=== PATIENT | male | born 1945 | race Caucasian/White ===

== ENCOUNTER 2020-10-11 13:19 | Emergency (ER) | payer OTHER, MEDICARE ==
[2020-10-11 14:23] LABS: ANION GAP 10.3 mEq/L (7-13); CHLORIDE,CL 106 mmol/L (98-107); SODIUM,NA 141 mmol/L (136-145)
--- NOTE | 2020-10-11 14:23 | EDM.PDOC ---
ED HPI GENERAL MEDICAL PROBLEM - General Source of Information: Reports: Patient, Family ( is with the patient ) History Limitations: Reports: Altered Mental Status - History of Present Illness Onset: Today, Other Duration: Constant Location: Reports: Other (bladder ) Quality: Reports: Other (none ) Improves with: Reports: None Worsens with: Reports: None Associated Symptoms: Reports: cough w sputum Left Upper Leg Pain Score (Numeric/FACES): 5 <Amber Ritchie - Last Filed: 10/11/20 16:29> <Bridgette Mccoy - Last Filed: 10/12/20 10:48> - General Chief Complaint: Neurological Problem Stated Complaint: altered mental status Time Seen by Provider: 10/11/20 14:21 - History of Present Illness INITIAL COMMENTS - FREE TEXT/NARRATIVE: Patient is a 75 y.o. male with a history of Parkinson's disease, accompanied by his , and brought to the ED by EMS for c/o altered mental status and worsening cough with production. The patient's reports the patient has been more agitated today than he has been recently, which prompter her to call EMS. She also states he has been more confused at nighttime and takes medications for hallucinations. EMS reports the patient urinated three times en route to the ED and he also urinated upon arrival. The patient's states he urinates frequently, so this is not unusual for him. He has a history of UTIs. The patient's also states the patient has a chronic cough, but reports it has been progressively worsening over the past week with increased production of clear sputum. Patient's reports he has a prescription for Guaifenesin , however, he has not been taking it regularly due to severe dysphagia. He has a swallow study scheduled for October 2020. Patient has been eating, but refusing to take fluids do to disliking the added thickener. Patient has had no fever, chills, body aches, ear pain, rhinorrhea, abdominal pain, or flank pain. Home health comes into the home every Sunday but due to the patient's change in mood and increased cough, they did not come to his home today. (Amber Ritchie) - Related Data Allergies Allergy/AdvReac Type Severity Reaction Status Date / Time clindamycin Allergy Diarrhea Verified 05/14/18 21:14 latex Allergy Rash Verified 10/11/20 13:47 tetracycline Allergy Cannot Verified 05/14/18 21:13 Remember Home Meds: Home Meds Cholecalciferol (Vitamin D3) [Vitamin D3] 2,000 units PO DAILY 05/14/18 [H istory] Cyanocobalamin (Vitamin B-12) [B-12] 1 cap PO DAILY 05/14/18 [History] Finasteride 5 mg PO DAILY 05/14/18 [History] Venlafaxine HCl [Venlafaxine ER] 75 mg PO QAM 05/14/18 [History] Carbidopa/Levodopa [Rytary ER 48.75 mg-195 mg Cap] 3 cap PO 1700 10/11/20 [History] Carbidopa/Levodopa [Rytary ER 48.75 mg-195 mg Cap] 4 cap PO .08,,10/11/20 [History] Clopidogrel Bisulfate [Clopidogrel] 75 mg PO DAILY 10/11/20 [History] Donepezil HCl 10 mg PO BEDTIME 10/11/20 [History] Lactobacillus Acidophilus [Acidophilus] 1 tab PO DAILY 10/11/20 [History] Losartan [Cozaar] 25 mg PO DAILY 10/11/20 [History] Mirtazapine 30 mg PO BEDTIME 10/11/20 [History] Propranolol HCl [Propranolol] 60 mg PO DAILY 10/11/20 [History] QUEtiapine Fumarate [Quetiapine Fumarate] 25 mg PO 1600 10/11/20 [History] QUEtiapine Fumarate [Quetiapine Fumarate] 75 mg PO BEDTIME 10/11/20 [History] Rosuvastatin Calcium 20 mg PO BEDTIME 10/11/20 [History] guaiFENesin [Guaifenesin] 400 mg PO TID PRN 10/11/20 [History] Past Medical History Cardiovascular History: Reports: High Cholesterol, Hypertension Respiratory History: Reports: Asthma Neurological History: Reports: Parkinson's - Infectious Disease History Infectious Disease History: Reports: Chicken Pox - Past Surgical History HEENT Surgical History: Reports: Tonsillectomy GI Surgical History: Reports: Colonoscopy <Amber Ritchie - Last Filed: 10/11/20 16:29> Social & Family History - Caffeine Use Caffeine Use: Reports: None <Amber Ritchie - Last Filed: 10/11/20 16:29> ED ROS GENERAL - Review of Systems Review Of Systems: Comprehensive ROS is negative, except as noted in HPI. <Amber Ritchie - Last Filed: 10/11/20 16:29> - Physical Exam Exam: See Below Exam Limited By: No Limitations (difficulty speaking but alert and oriented x4; is his historian) General Appearance: Alert, WD/WN, No Apparent Distress Eye Exam: Bilateral Eye: EOMI, Normal Inspection, PERRL Ears: Normal External Exam, Normal Canal, Normal TMs, Other (Patient wears hearing aids ) Nose: Normal Inspection, Normal Mucosa, No Blood Throat/Mouth: Normal Inspection, Normal Lips, Normal Teeth, Normal Gums, Normal Oropharynx, Normal Voice, No Airway Compromise Head Exam: Atraumatic, Normocephalic Neck: Normal Inspection, Supple, Non-Tender, Full Range of Motion Respiratory/Chest: No Respiratory Distress, Normal Breath Sounds, No Accessory Muscle Use, Chest Non-Tender, Rhonchi (Patient has wet sounding rhonchi which are cleared with coughing) Cardiovascular: Normal Peripheral Pulses, Regular Rate, Rhythm, No Edema, No Gallop, No JVD, No Murmur, No Rub GI/Abdominal: Normal Bowel Sounds, Soft, Non-Tender, No Organomegaly, No Distention, No Abnormal Bruit, No Mass. No: Guarding (Male) Exam: Deferred Rectal (Males) Exam: Deferred Neuro Exam (Abbreviated): Alert, Oriented, CN II-XII Intact, Normal Cognition, Normal Gait, Other (Patient has chronic tremors; decreased cordination due to Parkinsons ) Back Exam: Normal Inspection. No: CVA Tenderness (L), CVA Tenderness (R) Extremities: Normal Inspection, Non-Tender, No Pedal Edema, Normal Capillary Refill, Limited Range of Motion (due to stiffness ) Psychiatric: Normal Affect, Normal Mood Skin Exam: Warm, Dry, Intact, Normal Color, No Rash <Amber Ritchie - Last Filed: 10/11/20 16:29> Course <Bridgette Mccoy - Last Filed: 10/12/20 10:48> - Vital Signs Last Recorded V/S: Last Vital Signs Temp 98.2 F 10/11/20 14:18 Pulse 82 10/11/20 14:18 Resp 18 10/11/20 14:18 BP 136/52 L 10/11/20 14:18 Pulse Ox 94 L 10/11/20 14:18 - Orders/Labs/Meds Orders: Active Orders 24 hr Category Date Time Status CULTURE URINE [RM] Stat Lab 10/11/20 13:10 Results Labs: Laboratory Tests 10/11/20 10/11/20 10/11/20 Range/Units 13:10 13:56 13:56 WBC 4.3 L (5.0-10.0) 10^3/uL RBC 4.20 L (4.6-6.2) 10^6/uL Hgb 14.0 (14.0-18.0) g/dL Hct 42.1 (40.0-54.0) % MCV 100.2 H (80-100) fL MCH 33.3 (27.0-34.0) pg MCHC 33.3 (33.0-35.0) g/dL Plt Count 234 (150-450) 10^3/uL Neut % (Auto) 65.8 (42.2-75.2) % Lymph % (Auto) 21.5 (20.5-50.1) % [place] % (Auto) 9.7 H (2-8) % Eos % (Auto) 2.8 (1.0-3.0) % Baso % (Auto) 0.2 (0.0-1.0) % Sodium 141 (136-145) mmol/L Potassium 4.3 (3.5-5.1) mmol/L Chloride 106 (98-107) mmol/L Carbon Dioxide 29 (21-32) mmol/L Anion Gap 10.3 (7-13) mEq/L BUN 10 (7-18) mg/dL Creatinine 0.86 (0.70-1.30) mg/dL Est Cr Clr Drug Dosing 78.95 mL/min Estimated GFR (MDRD) > 60 BUN/Creatinine Ratio 11.6 (No establ ref range) Glucose 96 (74-99) mg/dL Calcium 8.4 L (8.5-10.1) mg/dL Total Bilirubin 0.5 (0.2-1.0) mg/dL AST 13 L (15-37) U/L ALT 11 L (16-63) U/L Alkaline Phosphatase 65 (46-116) U/L Total Protein 6.1 L (6.4-8.2) g/dL Albumin 2.9 L (3.4-5.0) g/dL Globulin 3.2 Albumin/Globulin Ratio 0.91 Urine Color Yellow (YELLOW) Urine Appearance Slightly cloudy (CLEAR) Urine pH 8.5 (5.0-9.0) Ur Specific House 1.020 (1.005-1.030) Urine Protein Negative (NEGATIVE) Urine Glucose (UA) Negative (NEGATIVE) Urine Ketones Negative (NEGATIVE) Urine Occult Blood Trace-intact H (NEGATIVE) Urine Nitrite Positive H (NEGATIVE) Urine Bilirubin Negative (NEGATIVE) Urine Urobilinogen 0.2 (0.2-1.0) mg/dL Ur Leukocyte Esterase Large H (NEGATIVE) Urine RBC 0-5 /HPF Urine WBC 50-75 H (0-5/HPF) /HPF Ur Epithelial Cells Few (NOT SEEN) /HPF Urine Bacteria Many H (0-FEW/HPF) /HPF Urine Mucus Few H (NOT SEEN) /LPF SARS CoV-2 RNA Rapid CLAUDIA (NEGATIVE) 10/11/20 Range/Units 16:53 WBC (5.0-10.0) 10^3/uL RBC (4.6-6.2) 10^6/uL Hgb (14.0-18.0) g/dL Hct (40.0-54.0) % MCV (80-100) fL MCH (27.0-34.0) pg MCHC (33.0-35.0) g/dL Plt Count (150-450) 10^3/uL Neut % (Auto) (42.2-75.2) % Lymph % (Auto) (20.5-50.1) % [place] % (Auto) (2-8) % Eos % (Auto) (1.0-3.0) % Baso % (Auto) (0.0-1.0) % Sodium (136-145) mmol/L Potassium (3.5-5.1) mmol/L Chloride (98-107) mmol/L Carbon Dioxide (21-32) mmol/L Anion Gap (7-13) mEq/L BUN (7-18) mg/dL Creatinine (0.70-1.30) mg/dL Est Cr Clr Drug Dosing mL/min Estimated GFR (MDRD) BUN/Creatinine Ratio (No establ ref range) Glucose (74-99) mg/dL Calcium (8.5-10.1) mg/dL Total Bilirubin (0.2-1.0) mg/dL AST (15-37) U/L ALT (16-63) U/L Alkaline Phosphatase (46-116) U/L Total Protein (6.4-8.2) g/dL Albumin (3.4-5.0) g/dL Globulin Albumin/Globulin Ratio Urine Color (YELLOW) Urine Appearance (CLEAR) Urine pH (5.0-9.0) Ur Specific House (1.005-1.030) Urine Protein (NEGATIVE) Urine Glucose (UA) (NEGATIVE) Urine Ketones (NEGATIVE) Urine Occult Blood (NEGATIVE) Urine Nitrite (NEGATIVE) Urine Bilirubin (NEGATIVE) Urine Urobilinogen (0.2-1.0) mg/dL Ur Leukocyte Esterase (NEGATIVE) Urine RBC /HPF Urine WBC (0-5/HPF) /HPF Ur Epithelial Cells (NOT SEEN) /HPF Urine Bacteria (0-FEW/HPF) /HPF Urine Mucus (NOT SEEN) /LPF SARS CoV-2 RNA Rapid CLAUDIA Negative (NEGATIVE) Meds: Medications Discontinued Medications Generic Name Dose Route Start Last Admin Trade Name Freq PRN Reason Stop Dose Admin Ceftriaxone Sodium 1 gm/ 50 mls @ 100 mls/hr 10/11/20 15:56 10/11/20 16:39 Sodium Chloride IV 10/11/20 16:25 100 mls/hr ONETIME ONE Administration Sodium Chloride 1,000 mls @ 125 mls/hr 10/11/20 16:44 10/11/20 16:46 Normal Saline IV 10/12/20 00:43 125 mls/hr CONTINUOUS ONE Administration - Radiology Interpretation Free Text/Narrative:: Chest x-ray: No acute new cardiopulmonary abnormality i.e. unchanged except for technique and inspiration since July 2020 CXR See radiologist report (Bridgette Mccoy) - Re-Assessments/Exams Free Text/Narrative Re-Assessment/Exam: 10/12/20 10:43 I personally performed or re-performed the physical examination and medical decision making. I have verified all student documentation or findings, including history, physical exam and/or medical decision making. 10/12/20 10:44 Patient case was discussed with Dr. Candelaria at the [facility] who agreed to accept the patient for transfer. (Bridgette Mccoy) Departure <Amber Ritchie - Last Filed: 10/11/20 16:29> - Departure Time of Disposition: 18:17 Condition: Fair - Discharge Information *PRESCRIPTION DRUG MONITORING PROGRAM REVIEWED*: No *COPY OF PRESCRIPTION DRUG MONITORING REPORT IN PATIENT DORA: No <Bridgette Mccoy - Last Filed: 10/12/20 10:48> - Departure Disposition: DC/Tfer to [facility] Clinical Impression: UTI, Urinary tract infectious disease, Parkinson disease - Discharge Information Referrals: Lillian Cunningham PA [Primary Care Provider] - Forms: ED Department Discharge, Interfacility Transfer DAGO
--- NOTE | 2020-10-11 14:51 | CR ---
EXAMINATION: Chest 1V Frontal SEX: Male AGE: 75 years CLINICAL HISTORY: 75-year-old male complaining of CHEST PAIN. Comparison chest 14 and July 2020. INTERPRETATION: 1. Less than optimal inspiratory effort crowding the lung markings and blunting CP angles both bases. 2. Normal cardiac silhouette (size and configuration). No vascular congestion, cephalization of flow, alveolar edema or dependent new pleural fluid accumulation. 3. No new lung mass or hilar lymphadenopathy. Midline tracheobronchial airway unremarkable. 4. No focal lobar alveolar consolidation or peripheral interstitial "groundglass" lung densities. 5. No pneumothorax or pneumomediastinum. CONCLUSION: No acute new cardiopulmonary abnormality i.e. unchanged except for technique and inspiration since July 2020 CXR. CONCLUSION:
[2020-10-11] MEDS ORDERED: cefTRIAXone 1 GM in Sodium Chloride 0.9% 50 ML IV ONE (15:56)
[2020-10-11] MEDS ORDERED: Sodium Chloride 0.9% 1,000 ML IV ONE (16:44)
== END 2020-10-11 18:19 ==
LOC: DL.ED 13:19
DX: N39.0 Urinary tract infection, site not specified (principal); G20 Parkinson's disease; E78.00 Pure hypercholesterolemia, unspecified; I10 Essential (primary) hypertension; J45.909 Unspecified asthma, uncomplicated; Z88.1 Allergy status to other antibiotic agents; Z91.040 Latex allergy status; Z79.02 Long term (current) use of antithrombotics/antiplatelets; Z79.899 Other long term (current) drug therapy; Z20.822 Contact with and (suspected) exposure to COVID-19
CPT/HCPCS: 36415; 71045; 80053; 81001; 85025; 87086; 87088; 87186; 87635; 96365; 99284; 99285; J0696; J7030; U0002